=== PATIENT | female | born 1935 | race Caucasian/White ===

== ENCOUNTER 2021-12-15 18:43 | Inpatient (IN) | payer MEDICARE, MEDICAID ==
[2021-12-15] MEDS ORDERED: Sodium Chloride 0.9% 1,000 ML IV SCH (19:00)
[2021-12-15 19:32] LABS: ESTIMATED GFR 40 mL/min (>60)
[2021-12-15] MEDS ORDERED: Aspirin 81 MG Tab.Chew PO ONE (22:05)
[2021-12-15 22:41] LABS: CORONAVIRUS COVID-19 NAA NEGATIVE (NEGATIVE)
[2021-12-16] MEDS: Sodium Chloride 0.9% 1,000 ML IV SCH ×2 (03:49→14:31)
[2021-12-16] MEDS ORDERED: Acetaminophen 325 MG Tab PO PRN (11:35)
[2021-12-16] MEDS: Aspirin 81 MG Tab.EC PO SCH (12:05)
[2021-12-16] MEDS: Apixaban 2.5 MG Tab PO SCH ×2 (12:05→21:55)
[2021-12-16] MEDS: Rosuvastatin 10 MG Tab PO SCH (12:05)
[2021-12-16] MEDS: Insulin Lispro Protamine/Lispro 75-25 100 Units/ML 10 ML Vial SUBCUT SCH (17:16)
[2021-12-16] MEDS: Insulin Glargine,Human Rec. Analog 100 Units/ML 3 ML Pen SUBCUT SCH (21:55)
[2021-12-17] MEDS: Levothyroxine 50 MCG Tab PO SCH (06:20)
[2021-12-17] MEDS: Insulin Lispro Protamine/Lispro 75-25 100 Units/ML 10 ML Vial SUBCUT SCH ×3 (06:20→17:37)
[2021-12-17] MEDS: Aspirin 81 MG Tab.EC PO SCH (08:51)
[2021-12-17] MEDS: Sertraline 50 MG Tab PO SCH (08:51)
[2021-12-17] MEDS: Apixaban 2.5 MG Tab PO SCH ×2 (08:51→21:26)
[2021-12-17] MEDS: Rosuvastatin 10 MG Tab PO SCH (08:51)
[2021-12-17 09:52] LABS: ESTIMATED GFR 55 mL/min (>60)
[2021-12-17] MEDS: Cephalexin 250 MG Cap PO SCH (16:16)
[2021-12-17] MEDS: Insulin Glargine,Human Rec. Analog 100 Units/ML 3 ML Pen SUBCUT SCH (21:34)
[2021-12-18] MEDS: Levothyroxine 50 MCG Tab PO SCH (06:10)
[2021-12-18] MEDS: Insulin Lispro Protamine/Lispro 75-25 100 Units/ML 10 ML Vial SUBCUT SCH ×2 (06:35→11:37)
[2021-12-18] MEDS: Apixaban 2.5 MG Tab PO SCH (09:03)
[2021-12-18] MEDS: Sertraline 50 MG Tab PO SCH (09:03)
[2021-12-18] MEDS: Rosuvastatin 10 MG Tab PO SCH (09:03)
[2021-12-18] MEDS: Aspirin 81 MG Tab.EC PO SCH (09:03)
[2021-12-18] MEDS: Cephalexin 250 MG Cap PO SCH (09:03)
== END 2021-12-18 12:50 | disposition other institution (70) | DRG 65 ==
LOC: JD.ED 18:43 → JD.MS 22:27
PROVIDERS: ADMIT Internal Medicine Critical Care Medicine; ATTEND Pediatrics
DX: I63.9 Cerebral infarction, unspecified (principal); G81.91 Hemiplegia, unspecified affecting right dominant side; M19.90 Unspecified osteoarthritis, unspecified site; N18.31 Chronic kidney disease, stage 3a; E11.9 Type 2 diabetes mellitus without complications; F03.90 Unspecified dementia, unspecified severity, without behavioral disturbance, psychotic disturbance, mood disturbance, and anxiety; Z86.73 Personal history of transient ischemic attack (TIA), and cerebral infarction without residual deficits; E03.9 Hypothyroidism, unspecified; F32.A Depression, unspecified; E11.22 Type 2 diabetes mellitus with diabetic chronic kidney disease; I12.9 Hypertensive chronic kidney disease with stage 1 through stage 4 chronic kidney disease, or unspecified chronic kidney disease; E78.5 Hyperlipidemia, unspecified; F32.89 Other specified depressive episodes; R29.718 NIHSS score 18; E66.9 Obesity, unspecified; E03.8 Other specified hypothyroidism; E06.3 Autoimmune thyroiditis; Z66 Do not resuscitate; Z96.1 Presence of intraocular lens; R29.810 Facial weakness; G30.0 Alzheimer's disease with early onset; Z20.822 Contact with and (suspected) exposure to COVID-19; F02.80 Dementia in other diseases classified elsewhere, unspecified severity, without behavioral disturbance, psychotic disturbance, mood disturbance, and anxiety; E78.00 Pure hypercholesterolemia, unspecified; R47.81 Slurred speech; Z96.652 Presence of left artificial knee joint; Z68.38 Body mass index [BMI] 38.0-38.9, adult; Z79.890 Hormone replacement therapy; Z79.1 Long term (current) use of non-steroidal anti-inflammatories (NSAID); Z79.01 Long term (current) use of anticoagulants; Z79.82 Long term (current) use of aspirin; Z79.899 Other long term (current) drug therapy; Z88.0 Allergy status to penicillin; Z88.8 Allergy status to other drugs, medicaments and biological substances; Z88.1 Allergy status to other antibiotic agents; Z88.2 Allergy status to sulfonamides; Z87.19 Personal history of other diseases of the digestive system; Z86.718 Personal history of other venous thrombosis and embolism; Z87.442 Personal history of urinary calculi; Z88.6 Allergy status to analgesic agent; Z87.440 Personal history of urinary (tract) infections; Z98.42 Cataract extraction status, left eye; Z98.41 Cataract extraction status, right eye; Z90.710 Acquired absence of both cervix and uterus; Z90.89 Acquired absence of other organs
CPT/HCPCS: 0240U; 36415; 70450; 70496; 70498; 70551; 80053; 80307; 81001; 82947; 83735; 84484; 85025; 85379; 85610; 85730; 92610; 93005; 96360; 96361; 97116; 97162; 97166; 97530; 99285; 93010; 99233; 99239; 99284; A9270-GY; J1815-GY; J7030; U0002

== ENCOUNTER 2021-12-19 22:22 | Emergency (ER) | payer MEDICARE, MEDICAID | END 2021-12-20 00:06 | disposition home or self-care (01) | LOC: JD.ED 22:22 | DX: S01.01XA Laceration without foreign body of scalp, initial encounter (principal); E78.00 Pure hypercholesterolemia, unspecified; E03.9 Hypothyroidism, unspecified; E11.9 Type 2 diabetes mellitus without complications; E66.9 Obesity, unspecified; Z68.37 Body mass index [BMI] 37.0-37.9, adult; Z88.1 Allergy status to other antibiotic agents; Z88.8 Allergy status to other drugs, medicaments and biological substances; Z88.0 Allergy status to penicillin; Z88.2 Allergy status to sulfonamides; Z79.01 Long term (current) use of anticoagulants; Z79.4 Long term (current) use of insulin; Z79.82 Long term (current) use of aspirin; Z79.899 Other long term (current) drug therapy; Z90.49 Acquired absence of other specified parts of digestive tract; Z90.710 Acquired absence of both cervix and uterus; W01.198A Fall on same level from slipping, tripping and stumbling with subsequent striking against other object, initial encounter | CPT/HCPCS: 12002; 70450; 70450-26; 72125; 72125-26; 99283 ==

== ENCOUNTER 2021-12-28 23:01 | Inpatient (IN) | payer MEDICARE, MEDICAID ==
[2021-12-29] MEDS ORDERED: Dexamethasone 10 MG/ML SDV IVPUSH ONE (03:06)
[2021-12-29] MEDS ORDERED: REMDESIVIR 200 MG in Sodium Chloride 0.9% 250 ML IV ONE (03:06)
[2021-12-29] MEDS ORDERED: Levothyroxine 75 MCG Tab PO ONE (07:32)
[2021-12-29] MEDS ORDERED: Sertraline 50 MG Tab PO ONE (07:35)
[2021-12-29] MEDS ORDERED: Apixaban 2.5 MG Tab PO ONE (08:00)
[2021-12-29] MEDS: Saccharomyces Boulardii (Probiotic) 250 MG Cap PO SCH (10:20)
[2021-12-29] MEDS ORDERED: Ondansetron 4 MG/2 ML SDV IV PRN (10:53)
[2021-12-29] MEDS ORDERED: oxyCODONE 5 MG Tab PO PRN (10:53)
[2021-12-29] MEDS ORDERED: Acetaminophen 325 MG Tab PO PRN (10:53)
[2021-12-29] MEDS: Insulin Lispro 100 Unit/ML 3 ML KwikPen SUBCUT SCH ×3 (13:40→19:59)
[2021-12-29] MEDS ORDERED: Heparin Sodium 5,000 Units/ML Vial SUBCUT SCH (14:00)
[2021-12-29] MEDS: Insulin Glargine,Human Rec. Analog 100 Units/ML 3 ML Pen SUBCUT SCH (20:00)
[2021-12-29] MEDS: Apixaban 2.5 MG Tab PO SCH (20:02)
[2021-12-30] MEDS ORDERED: Levothyroxine 75 MCG Tab PO SCH (06:00)
[2021-12-30] MEDS: Insulin Lispro 100 Unit/ML 3 ML KwikPen SUBCUT SCH ×4 (06:30→20:41)
[2021-12-30] MEDS ORDERED: Aspirin 81 MG Tab.EC PO SCH (09:00)
[2021-12-30] MEDS ORDERED: Sertraline 50 MG Tab PO SCH (09:00)
[2021-12-30] MEDS: Apixaban 2.5 MG Tab PO SCH ×2 (09:23→20:40)
[2021-12-30] MEDS: Saccharomyces Boulardii (Probiotic) 250 MG Cap PO SCH (09:23)
[2021-12-30] MEDS: Insulin Glargine,Human Rec. Analog 100 Units/ML 3 ML Pen SUBCUT SCH (20:42)
[2021-12-30] MEDS ORDERED: Cephalexin 250 MG Cap PO SCH (21:00)
== END 2021-12-31 14:49 | DRG 178 ==
LOC: JD.ED 23:01 → UNDOADMIN 12-29 10:22 → JD.ICU 12-29 10:22 → JD.ZCENSUS 12-31 12:40 → JD.ICU 12-31 14:49 → JD.ZCENSUS 12-31 14:49 → UNDOADMIN 12-31 14:49 → UNDODISIN 12-31 14:49
PROVIDERS: ADMIT Hospitalist; ATTEND Hospitalist
DX: U07.1 COVID-19 (principal); R41.0 Disorientation, unspecified; R06.00 Dyspnea, unspecified; Z68.41 Body mass index [BMI] 40.0-44.9, adult; F03.90 Unspecified dementia, unspecified severity, without behavioral disturbance, psychotic disturbance, mood disturbance, and anxiety; E11.22 Type 2 diabetes mellitus with diabetic chronic kidney disease; N18.30 Chronic kidney disease, stage 3 unspecified; Z66 Do not resuscitate; Z86.718 Personal history of other venous thrombosis and embolism; E78.5 Hyperlipidemia, unspecified; I12.9 Hypertensive chronic kidney disease with stage 1 through stage 4 chronic kidney disease, or unspecified chronic kidney disease; E11.9 Type 2 diabetes mellitus without complications; H54.7 Unspecified visual loss; E78.00 Pure hypercholesterolemia, unspecified; Z79.890 Hormone replacement therapy; K57.90 Diverticulosis of intestine, part unspecified, without perforation or abscess without bleeding; Z79.899 Other long term (current) drug therapy; R32 Unspecified urinary incontinence; M19.90 Unspecified osteoarthritis, unspecified site; F41.9 Anxiety disorder, unspecified; F32.A Depression, unspecified; E03.9 Hypothyroidism, unspecified; E66.9 Obesity, unspecified; Z80.9 Family history of malignant neoplasm, unspecified; Z86.73 Personal history of transient ischemic attack (TIA), and cerebral infarction without residual deficits; Z87.440 Personal history of urinary (tract) infections; Z79.01 Long term (current) use of anticoagulants; Z88.0 Allergy status to penicillin; Z88.2 Allergy status to sulfonamides; Z88.8 Allergy status to other drugs, medicaments and biological substances; Z88.1 Allergy status to other antibiotic agents; Z79.4 Long term (current) use of insulin; Z79.82 Long term (current) use of aspirin; Z86.16 Personal history of COVID-19; Z98.49 Cataract extraction status, unspecified eye; Z90.49 Acquired absence of other specified parts of digestive tract; Z90.710 Acquired absence of both cervix and uterus; Z96.659 Presence of unspecified artificial knee joint; Z96.0 Presence of urogenital implants; W19.XXXA Unspecified fall, initial encounter
CPT/HCPCS: 36415; 70450; 71045; 80053; 81001; 83605; 84484; 85025; 85379; 85610; 85730; 86140; 87040 ×2; 93005; 96365; 96375; 99285; A9270 ×4; J1100; J7050; 73502-26-LT; 73502-26-RT; 73502-LT; 73502-RT; 80048; 82947; 85027; 93010; 94667; 94762; 97110-GO; 97116-GP; 97162-GP; 97166-GO; 97535-GO; 99222; 99232; 99238; 99284; J1815; J1815-GY

== ENCOUNTER 2022-01-21 15:48 | Inpatient (IN) | payer MEDICARE, MEDICAID ==
[2022-01-21] MEDS ORDERED: Sodium Chloride 0.9% 10 ML Syringe FLUSH PRN (16:12)
[2022-01-21] MEDS ORDERED: Sodium Chloride 0.9% 1,000 ML IV SCH (16:15)
[2022-01-21 17:03] LABS: ESTIMATED GFR 44 mL/min (>60)
[2022-01-21] MEDS ORDERED: Acetaminophen 325 MG Tab PO ONE (17:13)
[2022-01-21] MEDS ORDERED: cefTRIAXone 1 GM in Sodium Chloride 0.9% 100 ML IV ONE (18:17)
[2022-01-21] MEDS ORDERED: Lactated Ringers 1,000 ML IV SCH (18:30)
[2022-01-21] MEDS ORDERED: Ondansetron 4 MG Tab.DIS PO PRN (18:34)
[2022-01-21] MEDS: Acetaminophen/HYDROcodone 325-5 MG Tab PO PRN (20:42)
[2022-01-21] MEDS: Dextrose 5%-0.9% NaCl 1,000 ML IV SCH (20:44)
[2022-01-22] MEDS: Acetaminophen/HYDROcodone 325-5 MG Tab PO PRN ×2 (04:20→09:20)
[2022-01-22] MEDS ORDERED: Enoxaparin 30 MG/0.3 ML Syringe SUBCUT SCH ×2 (09:00→10:00)
[2022-01-22] MEDS ORDERED: Colchicine 0.6 MG Tab PO ONE (11:00)
[2022-01-22] MEDS: Dextrose 5%-0.9% NaCl 1,000 ML IV SCH (11:44)
[2022-01-22] MEDS: predniSONE 20 MG Tab PO SCH (11:54)
[2022-01-22] MEDS ORDERED: Apixaban 2.5 MG Tab PO ONE (14:14)
[2022-01-22] MEDS: Sertraline 50 MG Tab PO SCH (15:32)
[2022-01-22] MEDS: cefTRIAXone 1 GM in Sodium Chloride 0.9% 100 ML IV SCH (16:21)
[2022-01-22] MEDS: Rosuvastatin 10 MG Tab PO SCH (20:49)
[2022-01-22] MEDS: Apixaban 2.5 MG Tab PO SCH (20:49)
[2022-01-22] MEDS: Insulin Glargine,Human Rec. Analog 100 Units/ML 3 ML Pen SUBCUT SCH (21:35)
[2022-01-23] MEDS: Dextrose 5%-0.9% NaCl 1,000 ML IV SCH ×2 (04:44→21:36)
[2022-01-23] MEDS: Levothyroxine 75 MCG Tab PO SCH (06:35)
[2022-01-23] MEDS: predniSONE 20 MG Tab PO SCH (09:13)
[2022-01-23] MEDS: Colchicine 0.6 MG Tab PO SCH ×2 (09:13→21:35)
[2022-01-23] MEDS: Sertraline 50 MG Tab PO SCH (09:14)
[2022-01-23] MEDS: Apixaban 2.5 MG Tab PO SCH ×2 (09:14→21:35)
[2022-01-23] MEDS: cefTRIAXone 1 GM in Sodium Chloride 0.9% 100 ML IV SCH (16:31)
[2022-01-23] MEDS: Rosuvastatin 10 MG Tab PO SCH (21:34)
[2022-01-23] MEDS: Insulin Glargine,Human Rec. Analog 100 Units/ML 3 ML Pen SUBCUT SCH (21:40)
[2022-01-24] MEDS: Levothyroxine 75 MCG Tab PO SCH (06:27)
[2022-01-24] MEDS: Sertraline 50 MG Tab PO SCH (09:02)
[2022-01-24] MEDS: Apixaban 2.5 MG Tab PO SCH ×2 (09:04→20:20)
[2022-01-24] MEDS: predniSONE 20 MG Tab PO SCH (09:04)
[2022-01-24] MEDS: Colchicine 0.6 MG Tab PO SCH ×2 (09:05→20:20)
[2022-01-24] MEDS ORDERED: Levofloxacin 750 MG Tab PO SCH (10:30)
[2022-01-24] MEDS: Dextrose 5%-0.9% NaCl 1,000 ML IV SCH (13:20)
[2022-01-24] MEDS: Insulin Glargine,Human Rec. Analog 100 Units/ML 3 ML Pen SUBCUT SCH (20:20)
[2022-01-24] MEDS: Rosuvastatin 10 MG Tab PO SCH (20:20)
[2022-01-25] MEDS: Dextrose 5%-0.9% NaCl 1,000 ML IV SCH (02:47)
[2022-01-25] MEDS: Levothyroxine 75 MCG Tab PO SCH (06:24)
[2022-01-25] MEDS: predniSONE 20 MG Tab PO SCH (08:40)
[2022-01-25] MEDS: Apixaban 2.5 MG Tab PO SCH (08:41)
[2022-01-25] MEDS: Colchicine 0.6 MG Tab PO SCH (08:41)
[2022-01-25] MEDS: Sertraline 50 MG Tab PO SCH (08:42)
[2022-01-25] MEDS ORDERED: Apixaban 2.5 MG Tab PO SCH (09:00)
[2022-01-25] MEDS ORDERED: Sertraline 50 MG Tab PO SCH (09:00)
[2022-01-25] MEDS ORDERED: Insulin Glargine,Human Rec. Analog 100 Units/ML 3 ML Pen SUBCUT SCH (21:00)
[2022-01-25] MEDS ORDERED: Rosuvastatin 10 MG Tab PO SCH (21:00)
[2022-01-25] MEDS ORDERED: Aspirin 81 MG Tab.EC PO SCH (21:00)
[2022-01-26] MEDS ORDERED: Levothyroxine 50 MCG Tab PO SCH (06:00)
== END 2022-01-25 13:00 | disposition home health service (06) | DRG 871 ==
LOC: SUPCPDRO 15:48 → JD.ED 15:48 → JD.MS 18:34
PROVIDERS: ADMIT Hospitalist; ATTEND Hospitalist
DX: N39.0 Urinary tract infection, site not specified (principal); R41.82 Altered mental status, unspecified; A41.89 Other specified sepsis; R26.2 Difficulty in walking, not elsewhere classified; E78.00 Pure hypercholesterolemia, unspecified; R32 Unspecified urinary incontinence; M19.90 Unspecified osteoarthritis, unspecified site; G93.41 Metabolic encephalopathy; N30.00 Acute cystitis without hematuria; Z66 Do not resuscitate; E11.9 Type 2 diabetes mellitus without complications; F41.9 Anxiety disorder, unspecified; F32.A Depression, unspecified; M19.031 Primary osteoarthritis, right wrist; E03.9 Hypothyroidism, unspecified; Z79.82 Long term (current) use of aspirin; Z79.890 Hormone replacement therapy; I10 Essential (primary) hypertension; F03.90 Unspecified dementia, unspecified severity, without behavioral disturbance, psychotic disturbance, mood disturbance, and anxiety; Z96.0 Presence of urogenital implants; E78.5 Hyperlipidemia, unspecified; E66.9 Obesity, unspecified; R53.1 Weakness; Z79.1 Long term (current) use of non-steroidal anti-inflammatories (NSAID); Z68.38 Body mass index [BMI] 38.0-38.9, adult; Z79.899 Other long term (current) drug therapy; Z79.4 Long term (current) use of insulin; Z86.16 Personal history of COVID-19; Z88.0 Allergy status to penicillin; Z88.1 Allergy status to other antibiotic agents; Z88.8 Allergy status to other drugs, medicaments and biological substances; Z88.2 Allergy status to sulfonamides; Z97.3 Presence of spectacles and contact lenses; Z86.718 Personal history of other venous thrombosis and embolism; Z79.01 Long term (current) use of anticoagulants; Z86.73 Personal history of transient ischemic attack (TIA), and cerebral infarction without residual deficits; Z98.42 Cataract extraction status, left eye; Z98.41 Cataract extraction status, right eye; Z90.49 Acquired absence of other specified parts of digestive tract; Z90.710 Acquired absence of both cervix and uterus
CPT/HCPCS: 36415; 70450; 71045; 72170; 73030; 73110; 80053; 81001; 83605; 83880; 85025; 86140; 87040 ×2; 87086; 87088; 87186; 87641; A9270; J0696; J3490; J7030; 80048; 82947; 84550; 96361; 96374; 97116-GP; 97162-GP; 97166-GO; 97530-GO; 97530-GP; 97535-GO; 99285-25; J1650; J1815-GY; J7042; J7512

== ENCOUNTER 2022-05-06 23:19 | Emergency (ER) | payer MEDICARE, MEDICAID | END 2022-05-07 01:39 | disposition home or self-care (01) | LOC: JD.ED 23:19 | DX: S00.83XA Contusion of other part of head, initial encounter (principal); S40.011A Contusion of right shoulder, initial encounter; E78.00 Pure hypercholesterolemia, unspecified; E11.22 Type 2 diabetes mellitus with diabetic chronic kidney disease; N18.9 Chronic kidney disease, unspecified; E03.9 Hypothyroidism, unspecified; E66.9 Obesity, unspecified; Z79.01 Long term (current) use of anticoagulants; Z88.0 Allergy status to penicillin; Z88.2 Allergy status to sulfonamides; Z88.8 Allergy status to other drugs, medicaments and biological substances; Z79.4 Long term (current) use of insulin; Z79.82 Long term (current) use of aspirin; Z79.899 Other long term (current) drug therapy; Z86.16 Personal history of COVID-19; Z86.73 Personal history of transient ischemic attack (TIA), and cerebral infarction without residual deficits; Z68.28 Body mass index [BMI] 28.0-28.9, adult; W18.09XA Striking against other object with subsequent fall, initial encounter; Y92.009 Unspecified place in unspecified non-institutional (private) residence as the place of occurrence of the external cause | CPT/HCPCS: 70450; 70450-26; 72125; 72125-26; 73030-26-RT; 73030-RT; 99283; 99284-25 ==

== ENCOUNTER 2022-05-21 15:47 | Inpatient (IN) | payer MEDICARE, MEDICAID ==
[2022-05-21] MEDS: Sodium Chloride 0.9% 10 ML Syringe FLUSH PRN ×2 (17:42→21:52)
[2022-05-21 18:05] LABS: ESTIMATED GFR 49 mL/min (>60)
[2022-05-21 19:17] LABS: CORONAVIRUS COVID-19 NAA NEGATIVE (NEGATIVE)
[2022-05-21] MEDS ORDERED: Sodium Chloride 0.9% 1,000 ML IV STA (20:25)
[2022-05-21] MEDS ORDERED: cefTRIAXone 2 GM in Sodium Chloride 0.9% 100 ML IV ONE (21:01)
[2022-05-21] MEDS ORDERED: Sodium Chloride 0.9% 1,000 ML IV SCH (22:45)
[2022-05-21] MEDS ORDERED: Apixaban 2.5 MG Tab PO ONE (23:00)
[2022-05-21] MEDS: Insulin Glargine,Human Rec. Analog 100 Units/ML 3 ML Pen SUBCUT SCH (23:18)
[2022-05-22] MEDS ORDERED: Ondansetron 4 MG/2 ML SDV IV PRN (07:50)
[2022-05-22] MEDS ORDERED: Acetaminophen 325 MG Tab PO PRN (07:50)
[2022-05-22] MEDS ORDERED: Docusate Sodium 100 MG Cap PO PRN (07:50)
[2022-05-22] MEDS ORDERED: Potassium Chloride 20 MEQ Tab.ER PO ONE (08:00)
[2022-05-22] MEDS ORDERED: Apixaban 2.5 MG Tab PO SCH (09:00)
[2022-05-22] MEDS: Sertraline 50 MG Tab PO SCH (09:22)
[2022-05-22] MEDS: Levothyroxine 75 MCG Tab PO SCH (09:22)
[2022-05-22] MEDS: Saccharomyces Boulardii (Probiotic) 250 MG Cap PO SCH (09:22)
[2022-05-22] MEDS: Apixaban 2.5 MG Tab PO SCH ×2 (09:22→21:08)
[2022-05-22] MEDS ORDERED: Iopamidol 755 Mg/ML 100 ML Bottle IVPUSH ONE (13:16)
[2022-05-22] MEDS ORDERED: Sodium Chloride 0.9% 10 ML Syringe FLUSH PRN (13:16)
[2022-05-22] MEDS ORDERED: Sodium Chloride 0.9% 100 ML IV SCH (13:30)
[2022-05-22] MEDS ORDERED: cefTRIAXone 2 GM in Sodium Chloride 0.9% 100 ML IV SCH (21:00)
[2022-05-22] MEDS: Rosuvastatin 10 MG Tab PO SCH (21:07)
[2022-05-22] MEDS: Aspirin 81 MG Tab.EC PO SCH (21:08)
[2022-05-22] MEDS: Insulin Glargine,Human Rec. Analog 100 Units/ML 3 ML Pen SUBCUT SCH (21:08)
[2022-05-23] MEDS: Levothyroxine 75 MCG Tab PO SCH (06:12)
[2022-05-23] MEDS: Sertraline 50 MG Tab PO SCH (08:46)
[2022-05-23] MEDS: Saccharomyces Boulardii (Probiotic) 250 MG Cap PO SCH (08:47)
[2022-05-23] MEDS: Apixaban 2.5 MG Tab PO SCH ×2 (08:48→21:30)
[2022-05-23] MEDS: Insulin Lispro 100 Unit/ML 3 ML KwikPen SUBCUT SCH ×2 (18:01→21:30)
[2022-05-23] MEDS: Aspirin 81 MG Tab.EC PO SCH (21:30)
[2022-05-23] MEDS: Rosuvastatin 10 MG Tab PO SCH (21:30)
[2022-05-23] MEDS: Insulin Glargine,Human Rec. Analog 100 Units/ML 3 ML Pen SUBCUT SCH (21:31)
[2022-05-24] MEDS: Levothyroxine 75 MCG Tab PO SCH (06:02)
[2022-05-24] MEDS: Insulin Lispro 100 Unit/ML 3 ML KwikPen SUBCUT SCH ×4 (08:53→21:44)
[2022-05-24] MEDS: Apixaban 2.5 MG Tab PO SCH ×2 (10:03→21:43)
[2022-05-24] MEDS: Saccharomyces Boulardii (Probiotic) 250 MG Cap PO SCH (10:03)
[2022-05-24] MEDS: Sertraline 50 MG Tab PO SCH (10:03)
[2022-05-24] MEDS: Rosuvastatin 10 MG Tab PO SCH (21:43)
[2022-05-24] MEDS: Insulin Glargine,Human Rec. Analog 100 Units/ML 3 ML Pen SUBCUT SCH (21:43)
[2022-05-24] MEDS: Aspirin 81 MG Tab.EC PO SCH (21:43)
[2022-05-24] MEDS: QUEtiapine 25 MG Tab PO SCH (21:43)
[2022-05-25] MEDS: Insulin Lispro 100 Unit/ML 3 ML KwikPen SUBCUT SCH ×4 (06:58→22:12)
[2022-05-25] MEDS: Levothyroxine 75 MCG Tab PO SCH (06:58)
[2022-05-25] MEDS: Saccharomyces Boulardii (Probiotic) 250 MG Cap PO SCH (10:13)
[2022-05-25] MEDS: Sertraline 50 MG Tab PO SCH (10:13)
[2022-05-25] MEDS: Apixaban 2.5 MG Tab PO SCH ×2 (10:14→20:35)
[2022-05-25] MEDS: Benzocaine/Cetylpyridinium/Menthol Lozenge MUCMEM SCH ×3 (14:16→20:35)
[2022-05-25] MEDS: Aspirin 81 MG Tab.EC PO SCH (20:35)
[2022-05-25] MEDS: QUEtiapine 25 MG Tab PO SCH (20:35)
[2022-05-25] MEDS: Rosuvastatin 10 MG Tab PO SCH (20:35)
[2022-05-25] MEDS: Insulin Glargine,Human Rec. Analog 100 Units/ML 3 ML Pen SUBCUT SCH (22:13)
[2022-05-26] MEDS: Levothyroxine 75 MCG Tab PO SCH (05:31)
[2022-05-26] MEDS: Insulin Lispro 100 Unit/ML 3 ML KwikPen SUBCUT SCH ×4 (07:45→22:00)
[2022-05-26] MEDS: Sertraline 50 MG Tab PO SCH (09:04)
[2022-05-26] MEDS: Saccharomyces Boulardii (Probiotic) 250 MG Cap PO SCH (09:05)
[2022-05-26] MEDS: Benzocaine/Cetylpyridinium/Menthol Lozenge MUCMEM SCH ×4 (09:05→21:26)
[2022-05-26] MEDS: Apixaban 2.5 MG Tab PO SCH ×2 (09:05→21:59)
[2022-05-26] MEDS: Diclofenac Sodium 1% Gel 100 GM Tube TOP SCH ×3 (11:49→22:01)
[2022-05-26] MEDS: Naproxen 500 MG Tab PO SCH ×2 (13:24→21:59)
[2022-05-26] MEDS: Rosuvastatin 10 MG Tab PO SCH (21:59)
[2022-05-26] MEDS: QUEtiapine 25 MG Tab PO SCH (21:59)
[2022-05-26] MEDS: Aspirin 81 MG Tab.EC PO SCH (21:59)
[2022-05-26] MEDS: Insulin Glargine,Human Rec. Analog 100 Units/ML 3 ML Pen SUBCUT SCH (22:00)
[2022-05-27] MEDS: Diclofenac Sodium 1% Gel 100 GM Tube TOP SCH ×4 (05:30→22:07)
[2022-05-27] MEDS: Levothyroxine 75 MCG Tab PO SCH (06:09)
[2022-05-27] MEDS: Insulin Lispro 100 Unit/ML 3 ML KwikPen SUBCUT SCH ×4 (09:00→20:33)
[2022-05-27] MEDS: Apixaban 2.5 MG Tab PO SCH ×2 (09:00→20:34)
[2022-05-27] MEDS: Sertraline 50 MG Tab PO SCH (09:01)
[2022-05-27] MEDS: Saccharomyces Boulardii (Probiotic) 250 MG Cap PO SCH (09:08)
[2022-05-27] MEDS: Naproxen 500 MG Tab PO SCH ×2 (09:08→20:34)
[2022-05-27] MEDS: Benzocaine/Cetylpyridinium/Menthol Lozenge MUCMEM SCH ×4 (09:09→20:32)
[2022-05-27] MEDS: Rosuvastatin 10 MG Tab PO SCH (20:34)
[2022-05-27] MEDS: QUEtiapine 25 MG Tab PO SCH (20:34)
[2022-05-27] MEDS: Aspirin 81 MG Tab.EC PO SCH (20:34)
[2022-05-27] MEDS: Insulin Glargine,Human Rec. Analog 100 Units/ML 3 ML Pen SUBCUT SCH (20:34)
[2022-05-28] MEDS: Diclofenac Sodium 1% Gel 100 GM Tube TOP SCH ×2 (04:06→09:33)
[2022-05-28] MEDS: Levothyroxine 75 MCG Tab PO SCH (05:50)
[2022-05-28] MEDS: Insulin Lispro 100 Unit/ML 3 ML KwikPen SUBCUT SCH ×2 (06:47→11:36)
[2022-05-28] MEDS: Naproxen 500 MG Tab PO SCH (09:27)
[2022-05-28] MEDS: Apixaban 2.5 MG Tab PO SCH (09:27)
[2022-05-28] MEDS: Sertraline 50 MG Tab PO SCH (09:27)
[2022-05-28] MEDS: Benzocaine/Cetylpyridinium/Menthol Lozenge MUCMEM SCH (09:27)
[2022-05-28] MEDS: Saccharomyces Boulardii (Probiotic) 250 MG Cap PO SCH (09:27)
== END 2022-05-28 13:00 | DRG 866 ==
LOC: JD.ED 15:47 → JD.MS 21:03 → OBSVTOIN 21:04
PROVIDERS: ADMIT Internal Medicine; ATTEND Internal Medicine
DX: B34.9 Viral infection, unspecified (principal); J98.11 Atelectasis; F05 Delirium due to known physiological condition; Z66 Do not resuscitate; R53.1 Weakness; E78.5 Hyperlipidemia, unspecified; I12.9 Hypertensive chronic kidney disease with stage 1 through stage 4 chronic kidney disease, or unspecified chronic kidney disease; F41.9 Anxiety disorder, unspecified; F32.A Depression, unspecified; E11.22 Type 2 diabetes mellitus with diabetic chronic kidney disease; R41.0 Disorientation, unspecified; N18.31 Chronic kidney disease, stage 3a; R09.02 Hypoxemia; Z20.822 Contact with and (suspected) exposure to COVID-19; M19.031 Primary osteoarthritis, right wrist; M10.031 Idiopathic gout, right wrist; F03.B0 Unspecified dementia, moderate, without behavioral disturbance, psychotic disturbance, mood disturbance, and anxiety; Z96.659 Presence of unspecified artificial knee joint; E11.9 Type 2 diabetes mellitus without complications; Z87.442 Personal history of urinary calculi; Z98.49 Cataract extraction status, unspecified eye; Z90.710 Acquired absence of both cervix and uterus; I10 Essential (primary) hypertension; E03.9 Hypothyroidism, unspecified; E78.00 Pure hypercholesterolemia, unspecified; F03.90 Unspecified dementia, unspecified severity, without behavioral disturbance, psychotic disturbance, mood disturbance, and anxiety; Z98.890 Other specified postprocedural states; Z90.49 Acquired absence of other specified parts of digestive tract; Z88.8 Allergy status to other drugs, medicaments and biological substances; Z88.0 Allergy status to penicillin; Z88.2 Allergy status to sulfonamides; Z68.36 Body mass index [BMI] 36.0-36.9, adult; E66.9 Obesity, unspecified; Z79.4 Long term (current) use of insulin; Z79.01 Long term (current) use of anticoagulants; Z79.82 Long term (current) use of aspirin; Z79.899 Other long term (current) drug therapy; Z86.73 Personal history of transient ischemic attack (TIA), and cerebral infarction without residual deficits; Z86.718 Personal history of other venous thrombosis and embolism; Z87.440 Personal history of urinary (tract) infections
CPT/HCPCS: 0241U; 36415; 70450; 71045; 71275; 73100; 80048; 80053; 81001; 82947; 83605; 83735; 84484; 85025; 85379; 86140; 87040; 87086; 87641; 93005; 94761; 96361; 96365; 97110; 97162; 97166; 97530; 97535; 99285; 93010; 99223; 99232; 99233; 99239; 99284; A9270-GY; G0378; J0696; J1815; J1815-GY; J3490; J7030; Q9967; U0002

== ENCOUNTER 2024-06-01 08:03 | Emergency (ER) | payer MEDICARE, MEDICAID | END 2024-06-01 10:50 | LOC: JD.ED 08:03 | DX: S72.011A Unspecified intracapsular fracture of right femur, initial encounter for closed fracture (principal); I12.9 Hypertensive chronic kidney disease with stage 1 through stage 4 chronic kidney disease, or unspecified chronic kidney disease; N18.9 Chronic kidney disease, unspecified; E78.00 Pure hypercholesterolemia, unspecified; E11.22 Type 2 diabetes mellitus with diabetic chronic kidney disease; E66.9 Obesity, unspecified; Z86.16 Personal history of COVID-19; Z90.710 Acquired absence of both cervix and uterus; Z79.899 Other long term (current) drug therapy; Z88.8 Allergy status to other drugs, medicaments and biological substances; Z88.2 Allergy status to sulfonamides; Z88.0 Allergy status to penicillin; W19.XXXA Unspecified fall, initial encounter | CPT/HCPCS: 72192; 72192-26; 99284 ==